=== PATIENT | male | born 1945 | race Caucasian/White ===

== ENCOUNTER → 2019-10-17 | Outpatient (CLI) | payer MEDICARE | END | disposition home or self-care (01) | LOC: CVU 15:14 | PROVIDERS: ATTEND Internal Medicine Cardiovascular Disease | DX: I08.0 Rheumatic disorders of both mitral and aortic valves (principal); I11.9 Hypertensive heart disease without heart failure; I48.91 Unspecified atrial fibrillation | CPT/HCPCS: 93306 ==

== ENCOUNTER 2019-11-13 06:22 | Observation (INO) | payer MEDICARE ==
[~2019-11-13] VITALS: Ht 188 cm; Wt 133.3 kg
[2019-11-13 06:45] VITALS: BP 144/77
[2019-11-13] MEDS ORDERED: ACET650S21 PO (06:54)
[2019-11-13] MEDS ORDERED: METO50TA82 PO (06:54)
[2019-11-13] MEDS ORDERED: ATOR40TA PO (06:54)
[2019-11-13] MEDS ORDERED: DABI150C PO (06:54)
[2019-11-13] MEDS ORDERED: ACET-2065 PO (06:56)
[2019-11-13] MEDS ORDERED: FENTANYL PF 100 MCG/2ML ONE (07:25)
[2019-11-13] MEDS ORDERED: MIDAZOLAM 1 MG/ML, 5ML ONE (07:25)
[2019-11-13] MEDS ORDERED: CEFAZOLIN 1,000 MG ONE (07:25)
[2019-11-13] MEDS ORDERED: LIDOCAINE 2%, 20ML ONE ×2 (07:25→08:42)
[2019-11-13 07:33] LABS: BASOPHILS # (AUTO) 0.04 x10^3/uL (0-0.1); BASOPHILS % (AUTO) 1 % (0-1); EOSINOPHILS # (AUTO) 0.12 x10^3/uL (0-0.4); EOSINOPHILS % (AUTO) 2 % (1-7); LYMPHOCYTES # (AUTO) 1.63 x10^3/uL (1-3.4); LYMPHOCYTES % (AUTO) 25 % (22-44); MD NO; MEAN CORPUSCULAR HEMOGLOBIN 35.8 pg (27.5-34.5); MEAN CORPUSCULAR HGB CONC 33.4 g/dL (33.2-36.2); MEAN CORPUSCULAR VOLUME 107.4 fL (81-97); MEAN PLATELET VOLUME 7.8 fL (7.4-10.4); MONOCYTES # (AUTO) 0.79 x10^3/uL (0.2-0.8); MONOCYTES % (AUTO) 12 % (2-9); NEUTROPHILS # (AUTO) 3.98 x10^3/uL (1.8-6.8); NEUTROPHILS % (AUTO) 61 % (42-75); PLATELET COUNT 207 x10^3/uL (130-400); RED CELL DISTRIBUTION WIDTH 13.7 % (9.4-14.8)
[2019-11-13 07:42] LABS: ALANINE AMINOTRANSFERASE 28 U/L (12-78); ALBUMIN 3.9 g/dL (3.4-5.0); ANION GAP 7 mmol/L (5-15); CHLORIDE 106 mmol/L (98-107)
[2019-11-13 07:44] LABS: ALKALINE PHOSPHATASE 96 U/L (45-117); TOTAL PROTEIN 7.7 g/dL (6.4-8.2)
[2019-11-13] MEDS ORDERED: ACETAMINOPHEN 325 MG TABLET PO PRN (10:00)
[2019-11-13] MEDS ORDERED: Hold all anticoagulants for 24 hours MC PRN (10:00)
[2019-11-13 10:21] VITALS: BP 137/68
[2019-11-13] MEDS: SODIUM CHLORIDE 0.9% 1,000 ML IV SCH ×3 (10:44→22:39)
[2019-11-13 12:55] VITALS: BP 123/88
[2019-11-13] MEDS: ACETAMINOPHEN 500 MG TABLET PO PRN ×2 (13:33→20:55)
[2019-11-13 14:05] VITALS: BP 135/83
[2019-11-13 20:42] VITALS: BP 129/77
[2019-11-13] MEDS: METOPROLOL TARTRATE 50 MG TAB PO SCH (20:55)
[2019-11-13] MEDS: SODIUM CHLORIDE FLUSH 10ML SYR IVF SCH (20:55)
[2019-11-13] MEDS ORDERED: ATORVASTATIN 40 MG TABLET PO SCH (21:00)
[2019-11-14 01:11] VITALS: BP 132/79
[2019-11-14] MEDS: SODIUM CHLORIDE 0.9% 1,000 ML IV SCH (06:39)
[2019-11-14 07:48] VITALS: BP 151/90
[2019-11-14] MEDS: SODIUM CHLORIDE FLUSH 10ML SYR IVF SCH (08:25)
[2019-11-14] MEDS: METOPROLOL TARTRATE 50 MG TAB PO SCH (08:25)
== END 2019-11-14 10:25 | disposition home or self-care (01) ==
LOC: CACL 06:22 → ORIP 09:57 → 5SO 10:02 → CACL 10:34 → 5SO 10:45 → DCLOUNGE 11-14 10:18
PROVIDERS: ADMIT Internal Medicine Clinical Cardiac Electrophysiology; ATTEND Internal Medicine Clinical Cardiac Electrophysiology
DX: I48.0 Paroxysmal atrial fibrillation (principal); I10 Essential (primary) hypertension; E78.2 Mixed hyperlipidemia; G47.30 Sleep apnea, unspecified; I34.0 Nonrheumatic mitral (valve) insufficiency; E66.9 Obesity, unspecified; I25.10 Atherosclerotic heart disease of native coronary artery without angina pectoris; E78.00 Pure hypercholesterolemia, unspecified; Z79.899 Other long term (current) drug therapy
CPT/HCPCS: 33208; 36005; 36415; 71045; 71046; 80053; 85025; 99156; 99157; C1779; C1785; C1892; G0378; J0690; J2250; J3010; J3490; Q9967